=== PATIENT | female | born 1985 ===

== ENCOUNTER 2017-01-03 06:41 | Emergency (ER) | payer SELFPAY ==
[2017-01-03 06:56] VITALS: BMI 25.7
[2017-01-03 06:58] VITALS: BP 163/109; PULSE 84; RESP 18; TEMP 98.8; O2SAT 100
--- NOTE | 2017-01-03 07:28 | ED PDOC ---
Arrival/HPI - General Chief Complaint: ENT Problem Time Seen by Provider: 01/03/17 07:25 - History of Present Illness Narrative History of Present Illness (Text): 31 y/o F p/w foreign body in L ear canal since this morning. Was cleaning inside ear with Q tip and when she pulled out the Q tip, the cotton tip was gone. Denies pain or dizziness. Past Medical History - Past History Past History: No Previous - Infectious Disease Hx of Infectious Diseases: None - Tetanus Immunization Tetanus Immunization: Unknown - Past Medical History Past Medical History: No Previous - Cardiac Hx Cardiac Disorders: No - Pulmonary Hx Respiratory Disorders: No - Neurological Hx Neurological Disorder: No - HEENT Hx HEENT Disorder: No - Renal Hx Renal Disorder: No Hx Kidney Stones: No - Endocrine/Metabolic Hx Endocrine Disorders: No - Hematological/Oncological Hx Blood Disorders: No - Integumentary Hx Dermatological Disorder: No - Musculoskeletal/Rheumatological Hx Musculoskeletal Disorders: No - Gastrointestinal Hx Gastrointestinal Disorders: No - Genitourinary/Gynecological Hx Genitourinary Disorders: No - Psychiatric Hx Anxiety: Yes Hx Depression: Yes Hx Emotional Abuse: No Hx Physical Abuse: No Hx Substance Use: No - Past Surgical History Past Surgical History: No Previous - Anesthesia Hx Anesthesia: No Hx Anesthesia Reactions: No Hx Malignant Hyperthermia: No - Suicidal Assessment Feels Threatened In Home Enviroment: No Family/Social History Family/Social History: No Known Family HX Smoking Status: Light Smoker < 10 Cigarettes Daily Hx Alcohol Use: No Hx Substance Use: No Hx Substance Use Treatment: No Allergies/Home Meds Allergies/Adverse Reactions: Allergies coconut Allergy (Verified 01/03/17 06:56) SWELLING Review of Systems - Physician Review All systems were reviewed & negative as marked: Yes - Review of Systems Constitutional: absent: Fevers Respiratory: absent: SOB Physical Exam - Physical Exam Narrative Physical Exam (Text): Gen: No acute distress. Head: NC Ear: Cotton ball visible in L ear canal. CV: Regular rate. Neuro: Alert. Vital Signs Temp Pulse Resp BP Pulse Ox 01/03/17 06:57 98.8 F 84 18 163/109 H 100 Medical Decision Making ED Course and Treatment: Full Q tip cotton tip removed with alligator forceps and otoscope. TM examined afterward, with areas of redness but no perforation. Disposition/Present on Arrival - Present on Arrival Any Indicators Present on Arrival: No History of DVT/PE: No History of Uncontrolled Diabetes: No Urinary Catheter: No History of Decub. Ulcer: No History Surgical Site Infection Following: None - Disposition Have Diagnosis and Disposition been Completed?: Yes Diagnosis: Acute foreign body of ear canal Disposition: HOME/ ROUTINE Disposition Time: 07:29 Patient Plan: Discharge Patient Problems: Current Active Problems Problem Status Diagnosed Acute foreign body of ear canal Acute Condition: STABLE Discharge Instructions (ExitCare): Ear Foreign Body (ED) Referrals: PCP,NO [Primary Care Provider] - Follow up with primary
== END 2017-01-03 07:35 | disposition home or self-care (01) ==
LOC: ED 06:41
DX: T16.2XXA Foreign body in left ear, initial encounter (principal); X58.XXXA Exposure to other specified factors, initial encounter; Y93.E8 Activity, other personal hygiene; Y92.89 Other specified places as the place of occurrence of the external cause